=== PATIENT | female | born 1970 | race Hispanic/Latino ===

== ENCOUNTER 2018-06-24 19:20 | Emergency (ER) | payer OTHER ==
[~2018-06-24] VITALS: Ht 157.5 cm; Wt 64.4 kg
--- NOTE | 2018-06-24 19:47 | ER.PDOC ---
General Chief Complaint: Extremities Stated Complaint: ANKLE INJURY Time seen by MD: 19:46 Source: patient Exam Limitations: no limitations History of Present Illness Initial Comments Ankle injury, bilateral when on walking she tripped and fell Onset: just prior to arrival Where: street Severity: severe Context: fall, twist Associated Symptoms: tingling, swelling Allergies: Coded Allergies: Penicillins (Verified Allergy, Unknown, Rash, 06/24/18) Past Medical History Medical History: no pertinent history Surgical History: no surgical history LMP (females 10-50): last week Social History Smoking: non-smoker Alcohol Use: none Drug Use: none Review of Systems Constitutional: no symptoms reported EENTM: no symptoms reported Respiratory: no symptoms reported Cardiovascular: no symptoms reported Gastrointestinal: no symptoms reported Genitourinary: no symptoms reported Musculoskeletal: see HPI Skin: no symptoms reported Psychiatric/Neurological: no symptoms reported Physical Exam General Appearance: Alert, No Apparent Distress Foot: nml inspection, non-tender Ankle: tenderness, swelling (bilateral ankles) Gait: unable to bear weight, unable to test gait Neuro: sensation nml, motor nml Vascular: no vascular compromise Tendons: tendon function nml Leg/Knee/Thigh: uninjured above ankle Skin: warm/dry Head/ENT: nml inspection, pharynx nml Neck/Back: nml inspection, non-tender Resp/CVS: no resp distress Abdomen: non-tender, no organomegaly Departure Time of Disposition: 20:13 Disposition: 01 HOME, SELF-CARE Impression: Primary Impression: Fracture of distal end of fibula Additional Impression: Fracture of distal end of tibia Condition: Stable Patient Instructions: Bimalleolar Fracture, Ankle, Adult, Displaced, ORIF Referrals: PAULO RAM MD Duration or Time Spent with Pa: 15 Problem Qualifiers BETTYE HALL MD Jun 24, 2018 19:47
--- NOTE | 2018-06-24 20:00 | DIREP ---
PROCEDURE:XRAY ANKLE MIN 3VWS-RT COMPARISON:None. INDICATIONS:TWISTED BOTH ANKLES FINDINGS: BONES:No acute fractures identified. There are well corticated fragments arising from the lateral malleolus, question old avulsion injury JOINTS:Normal. SOFT TISSUES:Minimal soft tissue swelling laterally. OTHER:No additional findings. CONCLUSION:No definite acute fracture. Old well corticated fragment along the lateral malleolus. Dictated by: Goyo Rajan MD on 06/24/2018 at 07:58 PM
--- NOTE | 2018-06-24 20:01 | DIREP ---
PROCEDURE:XRAY ANKLE MIN 3VWS-LT COMPARISON:None. INDICATIONS:TWISTED BOTH ANKLES FINDINGS: BONES:Fracture involving the distal fibula, oblique. A 2nd fracture involving the posterior aspect of the distal tibia is suspected, minimally displaced. Medial malleolus appears intact JOINTS:Normal. SOFT TISSUES:Soft tissue swelling laterally OTHER:No additional findings. CONCLUSION:Fracture of the posterior aspect of the distal tibia, and distal fibula. Dictated by: Goyo Rajan MD on 06/24/2018 at 07:59 PM
--- NOTE | 2018-06-24 20:10 | NUR ---
DR RAM STATES TO FIT PATIENT WITH A BOOT AND CRUTCHES AND HAVE HER FOLLOW-UP WITH YO ON WEDNESDAY AT 1PM
[2018-06-24] MEDS ORDERED: MORPHINE SULFATE IM PRN (20:30)
[2018-06-24] MEDS ORDERED: MORPHINE SULFATE ONE (20:43)
--- NOTE | 2018-06-24 20:48 | NUR ---
WALKING BOOT PATIENT FITTED WITH A MEDIUM WALKING BOOT ON LEFT FOOT, PMS INTACT PRE AND POST FITTING
[2018-06-24 20:55] VITALS: BP 114/66
== END 2018-06-24 20:50 | disposition home or self-care (01) ==
LOC: ER 19:20
DX: S82.832A Other fracture of upper and lower end of left fibula, initial encounter for closed fracture (principal); S82.392A Other fracture of lower end of left tibia, initial encounter for closed fracture; Z88.0 Allergy status to penicillin; W01.0XXA Fall on same level from slipping, tripping and stumbling without subsequent striking against object, initial encounter; Y93.01 Activity, walking, marching and hiking; Y92.410 Unspecified street and highway as the place of occurrence of the external cause; Y99.8 Other external cause status
CPT/HCPCS: 73610 ×2; 96372; 99284; J2270